=== PATIENT | male | born 1950 | race African-American/Black ===

== ENCOUNTER 2017-02-03 12:31 | Day surgery (SDC) | payer BC ==
--- NOTE | ~2017-02-03 | EGD ---
EGD REPORT [facility] [address] [address] NAME: IRVIN LYNNE JR : 48 STATUS : REG [facility] [place] PAT#: [id number] AGE: 66 ADM/REG DATE : 02/03/17 MR#: [id number] REPORT SERV DATE: 02/03/17 DICTATED BY: IQRA C[place]AND DATE: 02/03/17 REPORT STATUS : Draft TRANSCRIBED BY: [employer] DATE: 02/03/17 [facility] Patient Name: Irvin Lynne Jr Date of : 1950 Attending MD: IQRA C[place]AND MD Procedure Date No Time: 02/03/2017 Procedure: Upper GI endoscopy Indications: Dysphagia Referring MD: MARCUS ARTEAGA Medicines: Monitored Anesthesia Care Complications: No immediate complications. Procedure: Pre-Anesthesia Assessment: - ASA Grade Assessment: III - A patient with severe systemic disease. After obtaining informed consent, the endoscope was passed under direct vision. Throughout the procedure, the patient's blood pressure, pulse, and oxygen saturations were monitored continuously. The GIF [id number] was introduced through the mouth, and advanced to the second part of duodenum. The upper GI endoscopy was accomplished without difficulty. The patient tolerated the procedure well. Findings: No endoscopic abnormality was evident in the esophagus to explain the patient's complaint of dysphagia. It was decided, however, to proceed with dilation of the entire esophagus. A guidewire was placed and the scope was withdrawn. Dilation was performed with a Savary dilator with mild resistance at 45 Fr and mild resistance at 48 Fr. Localized moderate inflammation characterized by congestion (edema) and erythema was found in the gastric antrum. Biopsies were taken with a cold forceps for histology. The duodenal bulb and 2nd part of the duodenum were normal. The cardia and gastric fundus were normal on retroflexion. Impression: - No endoscopic esophageal abnormality to explain patient's dysphagia. Esophagus dilated. Dilated. - Gastritis. Biopsied. - Normal duodenal bulb and 2nd part of the duodenum. Recommendation: - Patient has a contact number available for emergencies. The signs and symptoms of potential delayed complications were discussed with the patient. Return to normal activities tomorrow. Written discharge instructions were provided to the patient. EGD REPORT [address] [place]. [address] NAME: IRVIN LYNNE JR : [birth year] STATUS : REG [facility] [place] PAT#: [id number] AGE: 66 ADM/REG DATE : 02/03/17 MR#: [id number] REPORT SERV DATE: 02/03/17 DICTATED BY: IQRA C[place]AND DATE: 02/03/17 REPORT STATUS : Draft TRANSCRIBED BY: [employer] DATE: 02/03/17 - Regular diet. - Continue present medications. - Return to GI clinic in 4 weeks. Procedure Code(s): --- Professional --- 90040, Esophagogastroduodenoscopy, flexible, transoral; with insertion of guide wire followed by passage of dilator(s) through esophagus over guide wire [id number], Esophagogastroduodenoscopy, flexible, transoral; with biopsy, single or multiple Diagnosis Code(s): --- Professional --- R13.10, Dysphagia, unspecified K29.70, Gastritis, unspecified, without bleeding CPT copyright 2013 [employer] [place] [employer]. All rights reserved. The codes documented in this report are preliminary and upon locomotive repairer diesel review may be revised to meet current compliance requirements. IQRA CLEVELAND MD 02/03/2017 3:39 PM This report has been signed electronically. Number of Addenda: 0 Note Initiated On: 02/03/2017 3:05 PM Scope Withdrawal Time 0 hours 0 minutes 0 seconds [address] [id number]
[~2017-02-03 12:31] MED LIST: ASAB PO; BUSPAR5 PO; COMBIGAN0.2 MG/0.5 OP; COMBIGAN0.2 MG/0.5 OPH; ENDOCET1 TA3 PO; GLUCPH PO; HUMALOGPEN SC; LEVEMFLXPN SC; LUMIGAN2.5 ML OPH; MCZ25 PO; MEDROLPAK4 PO; MOBIC7.5 PO; NEUR300 PO; NORCO1 TA2 PO; NOVOPEN SC; PERCOCET1 TA4 PO; PRIN10 PO; PRIN5 PO; SYSTANE ULTR OPH; TOPXL100 PO; TRAVATAN Z0.004 % OPH; V5 PO; ZANAFLEX 4 MG TA4 MG PO; ZOCOR20 PO
== END 2017-02-03 23:59 | disposition home or self-care (01) ==
LOC: DMU 12:31
PROVIDERS: Internal Medicine Gastroenterology
PROC: 0DB68ZX Excision of Stomach, Via Natural or Artificial Opening Endoscopic, Diagnostic (ICD-10-PCS; principal; 2017-02-03 14:00)
PROC: 0D758ZZ Dilation of Esophagus, Via Natural or Artificial Opening Endoscopic (ICD-10-PCS; 2017-02-03 14:00)
DX: R13.10 Dysphagia, unspecified (principal); I10 Essential (primary) hypertension; K21.9 Gastro-esophageal reflux disease without esophagitis; E11.9 Type 2 diabetes mellitus without complications; F17.210 Nicotine dependence, cigarettes, uncomplicated; Z88.8 Allergy status to other drugs, medicaments and biological substances; Z79.891 Long term (current) use of opiate analgesic; Z79.899 Other long term (current) drug therapy; Z98.41 Cataract extraction status, right eye; Z98.42 Cataract extraction status, left eye; Z98.890 Other specified postprocedural states
CPT/HCPCS: 82962; 88305; J3010